=== PATIENT | male | born 1995 | race Two or more races ===

== ENCOUNTER 2020-06-26 12:02 | Emergency (ER) | payer OTHER ==
[~2020-06-26] VITALS: Ht 172.7 cm; Wt 75.0 kg
[2020-06-26 12:15] VITALS: BP 113/80
[2020-06-26] MEDS ORDERED: BACI3.5O8 OD (12:26)
--- NOTE | 2020-06-26 12:27 | PHYS DOC ---
General Adult EDM: Chief Complaint: FINGER INJURY HPI: HPI: Patient is a 24 year old male who presents with patient is at work and picked up a hot tan and burned his left hand. Patient has dorsal first finger linear blister that is not filled with fluid and patient has full range of motion and function of the finger. Patient has a first-degree blanching redness burn to the dorsal lateral part of the thumb. Patient has some redness to the radial palm. There is no signs of infection or loss of skin. There is no loss of function of the hand he can make a full fist. He states it just durbin. Patient is in need of a tetanus shot as he cannot remember when his last one was. Aiyana ent can make a full fist and denies any numbness or tingling. Review of Systems: Review of Systems: Constitutional: Denies fever or chills. [] Eyes: Denies change in visual acuity. [] HENT: Denies nasal congestion or sore throat. [] Respiratory: Denies cough or shortness of breath. [] Cardiovascular: Denies chest pain or edema. [] GI: Denies abdominal pain, nausea, vomiting, bloody stools or diarrhea. [] : Denies dysuria. [] Musculoskeletal: Denies back pain or joint pain. Left hand pain. [] Integument: Denies rash. Left hand burn. [] Neurologic: Denies headache, focal weakness or sensory changes. [] Endocrine: Denies polyuria or polydipsia. [] Lymphatic: Denies swollen glands. [] Psychiatric: Denies depression or anxiety. [] Heart Score: Risk Factors: Risk Factors: DM, Current or recent (<one month) smoker, HTN, HLP, family history of CAD, obesity. Risk Scores: Score 0 - 3: 2.5% MACE over next 6 weeks - Discharge Home Score 4 - 6: 20.3% MACE over next 6 weeks - Admit for Clinical Observation Score 7 - 10: 72.7% MACE over next 6 weeks - Early Invasive Strategies Physical Exam: PE: Constitutional: Well developed, well nourished, no acute distress, non-toxic appearance. [] HENT: Normocephalic, atraumatic, bilateral external ears normal, oropharynx moist, no oral exudates, nose normal. [] Eyes: PERRLA, EOMI, conjunctiva normal, no discharge. [] Neck: Normal range of motion, no tenderness, supple, no stridor. [] Cardiovascular:Heart rate regular rhythm, no murmur [] Lungs & Thorax: Bilateral breath sounds clear to auscultation [] Abdomen: Bowel sounds normal, soft, no tenderness, no masses, no pulsatile masses. [] Skin: Warm, dry, no erythema, no rash. Left dorsal first finger near blister that has no fluid. Left lateral thumb blanching redness. Left radial palm redness. [] Back: No tenderness, no CVA tenderness. [] Extremities: Left hand tenderness over durbin, no cyanosis, no clubbing, ROM intact, no edema. [] Neurologic: Alert and oriented X 3, normal motor function, normal sensory function, no focal deficits noted. [] Psychologic: Affect normal, judgement normal, mood normal. [] EKG: EKG: [] Radiology/Procedures: Radiology/Procedures: [] Course & Med Decision Making: Course & Med Decision Making Pertinent Labs and Imaging studies reviewed. (See chart for details) Full range of motion of the hand. See HPI. Cap refill less than 3 seconds. No circumferential durbin. No swelling of the hand. Skin pink warm and dry. Radial pulse strong and present. Patient will receive a tetanus shot in the ED. Patient is told to keep it clean and covered and apply bacitracin ointment. [] [place] Disclaimer: Dragon Disclaimer: This electronic medical record was generated, in whole or in part, using a voice recognition dictation system. Departure Departure Impression: Primary Impression: Burn Disposition: 01 HOME, SELF-CARE Condition: STABLE Referrals: NO PCP (PCP) Patient Instructions: Burn Care Additional Instructions: Keep the areas clean and covered. Apply antibiotic ointment. Watch for signs of infection. Scripts Bacitracin (BACITRACIN) 3.5 Gm Oint...g. 1 SINGH OD BID, #3.5 GM Prov: SONG KULKARNI APRN 06/26/20 Justicifation of Admission Dx: Justifications for Admission: Justification of Admission Dx: N/A SONG KULKARNI APRN Jun 26, 2020 12:27
[2020-06-26] MEDS ORDERED: BACITRACIN TOPICAL OINT PACKET. TP ONE (12:30)
[2020-06-26] MEDS ORDERED: DIPH,PERTUSS(ACELL),TET VAC/PF 0.5 ML SYRINGE. VAX IM ONE (12:30)
== END 2020-06-26 12:55 | disposition home or self-care (01) ==
LOC: ER 12:02
DX: T23.202A Burn of second degree of left hand, unspecified site, initial encounter (principal); X16.XXXA Contact with hot heating appliances, radiators and pipes, initial encounter; Y99.9 Unspecified external cause status; Y92.69 Other specified industrial and construction area as the place of occurrence of the external cause; Y99.0 Civilian activity done for income or pay
CPT/HCPCS: 16000; 90471; 90715; 99283